=== PATIENT | female | born 1955 | race Caucasian/White ===

== ENCOUNTER 2021-10-06 06:12 | Outpatient (CLI) | payer BC, SELFPAY ==
--- NOTE | 2021-10-06 | USCV_ITS ---
Rita Souza Age: 66 Gender: F : 1955 Exam Date: 10/06/2021 06:51 Ordering Phys: Ginny Samuels Technologist: Ofe Downs [place] [facility] [place]: Irregular heart rate BP: 101 / 70 HR: 58 Rhythm: Sinus Technical Quality: Adequate MEASUREMENTS (Male / Female) Normal Values 2D ECHO LV Diastolic Diameter PLAX 3.4 cm 4.2 - 5.9 / 3.9 - 5.3 cm LV Systolic Diameter PLAX 2.4 cm LV Chamber Size 3.8 cm IVS Diastolic Thickness 1.1 cm 0.6 - 1.0 / 0.6 - 0.9 cm IVS Systolic Thickness 1.1 cm LVPW Diastolic Thickness 1.1 cm 0.6 - 1.0 / 0.6 - 0.9 cm LVPW Systolic Thickness 1.1 cm RV Chamber Size 2.9 cm LVOT Diameter 2.0 cm LV Ejection Fraction 2D Teich 60.5 % LV Ejection Fraction MOD 2C 68.2 % LV Ejection Fraction 2C AL 70.5 % LA Diameter 4.0 cm LA Width 3.4 cm LA Height 4.3 cm RA Width 3.2 cm RA Height 3.7 cm Aorta at Sinotubular Diameter 2.5 cm IVC Diameter 1.9 cm M-MODE Aortic Annulus Diameter 2.5 cm LA Ao Ratio MM 1.7 MV E Point Septal Separation 0.5 cm DOPPLER AV Peak Velocity 145.0 cm/s LVOT Peak Velocity 120.0 cm/s AV Area Cont Eq vti 2.2 cm squared AV Area Cont Eq pk 2.7 cm squared MV Area PHT 5.1 cm squared Mitral E to A Ratio 1.3 MV E' Velocity 45.5 cm/s Mitral E to MV E' Ratio 7.2 Mitral E to LV E' Lateral Ratio 7.8 Mitral E to LV E' Septal Ratio 6.7 TR Peak Velocity 216.1 cm/s TR Peak Gradient 18.7 mmHg TR Mean Velocity 167.6 cm/s TR Mean Gradient 12.7 mmHg TR Velocity Time Integral 67.0 cm TV Peak E Velocity 75.0 cm/s Right Atrial Pressure 3.0 mmHg Pulmonary Artery Systolic Pressu 21.7 mmHg PV Peak Velocity 63.0 cm/s RV Acceleration Time 0.2 s RV Ejection Time 0.4 s RV AcT/ET 0.6 FINDINGS Left Ventricle Normal left ventricular size and systolic function, EF 66 %. No regional wall motion abnormalities. Right Ventricle The right ventricle is normal in size and function. Right Atrium The right atrium is normal in size. Left Atrium Mildly increased left atrial size. Mitral Valve Mild mitral valve regurgitation. Aortic Valve No gross abnormalities noted Tricuspid Valve Mildtricuspid valve regurgitation. Pulmonic Valve No gross abnormalities noted Pericardium Normal pericardium without effusion. Aorta Normal ascending aorta dimension. IVC Normal IVC dimension with <50% respiratory change of the inferior vena cava. CONCLUSIONS Normal left ventricular size and systolic function, EF 66 %. No regional wall motion abnormalities. Mildly increased left atrial size. Mild mitral and tricuspid regurgitation. There is no pericardial effusion. There are no intracardiac masses. Estimated pulmonary artery peak systolic pressure 22 mmHg No similar previous studies are available for comparison Dr Babar Tarango MD FACC (Electronically Signed) Final Date: 07 October 2021 05:45 S
== END 2021-10-06 06:13 | disposition home or self-care (01) ==
LOC: RAD 06:13
PROVIDERS: Visit Provider Nurse Practitioner Family
DX: I49.9 Cardiac arrhythmia, unspecified (principal); I07.1 Rheumatic tricuspid insufficiency
CPT/HCPCS: 93306

== ENCOUNTER 2023-03-19 08:32 | Outpatient (CLI) | payer MEDICARE, SELFPAY ==
--- NOTE | 2023-03-19 08:36 | US_ITS ---
WS: [id number] RIGHT UPPER QUADRANT ULTRASOUND HISTORY: NAUSEA VOMITING COMPARISON: 03/22/2015 Liver: 12.8 cm in length. Normal size liver. Mild coarse echotexture throughout the liver. No mass or bile duct dilatation. Portal Vein: Normal hepatopetal flow with monophasic waveform. Gallbladder: Normally distended gallbladder with no stones or wall thickening. CBD: 0.3 cm Pancreas: Normal size and echogenicity. Right kidney: 9.0 cm in length. Normal size and echogenicity. No hydronephrosis or mass. Aorta and IVC: Unremarkable abdominal aorta and IVC. No ascites. IMPRESSION: 1. Normal gallbladder. 2. Very mild changes of hepatocellular disease, probably hepatic steatosis.
== END 2023-03-19 08:33 | disposition home or self-care (01) ==
LOC: RAD 08:32
PROVIDERS: Visit Provider Internal Medicine
DX: R11.2 Nausea with vomiting, unspecified (principal); Z01.89 Encounter for other specified special examinations
CPT/HCPCS: 76705

== ENCOUNTER 2023-10-15 06:54 | Outpatient (CLI) | payer MEDICARE, SELFPAY ==
--- NOTE | 2023-10-15 07:14 | CT_ITS ---
WS: [id number] CT ABDOMEN AND PELVIS WITH CONTRAST HISTORY: ABDOMINAL PAIN RIGHT UPPER QUADRANT, PAIN LEFT LOWER quadrant TECHNIQUE: Imaging performed of the abdomen and pelvis with IV contrast. Single phase imaging of the abdomen. Coronal and sagittal reformats are submitted. All CT scans at [facility] use at [address] one of these dose optimization techniques: automated exposure control; mA and/or kV adjustment per patient size (includes targeted exams where dose is matched to clinical indication); or iterative re construction. IV CONTRAST: Omnipaque 350; 100 mL IV. Oral contrast: Yes. DLP: 292.93 mGy.cm COMPARISON: 09/03/2011 Lower thorax: Lung bases are clear. Heart is normal size. No hiatal hernia. Liver/biliary system: Normal size with no intrahepatic dilatation. Gallbladder: Normal. No gallstones or wall thickening. No pericholecystic fluid. Pancreas: Normal common bile duct at the pancreatic head. No pancreatic duct dilatation. There is a 2 to 3 mm area of decreased attenuation in the pancreatic body which is probably normal lobulation of the pancreatic body and may be adjacent fat. No mass. Spleen: Normal size spleen. No mass or infarct. Adrenal glands: Normal. Right kidney: Normal. Left kidney: Normal. Aorta: Mild atherosclerosis with no aneurysm. Mild atherosclerotic plaque origin of the celiac axis. Celiac axis is small caliber. The LEFT hepatic artery arise separately from the aorta. Normal SMA. Lymphadenopathy: None. Free fluid: None. GI tract: Normally distended stomach. No small bowel obstruction. No wall thickening. No appendicitis . Minimal diverticular disease without acute diverticulitis. Abdominal wall: Fat containing umbilical hernia. Pelvis: Uterus is present and very elongated measuring approximately 10 cm in length. There is increa sed fluid in the cervical canal which is probably a nabothian cyst. This was also present on the prio r study. Bones: Unremarkable. CT/CT abdomen pelvis w con* [id number] IMPRESSION: 1. No acute abdominal or pelvic abnormalities. 2. No renal obstruction. 3. Negative gallbladder. 4. Normal variant celiac axis. 5. No GI tract obstruction. 6. Thin elongated uterus measures up to 10 cm in length. There is also a nabot hian cyst present. 7. No ascites or adenopathy.
[2023-10-15] MEDS: iohexol 350 mg/mL 500 mL Btl (per mL) PO (08:39)
[2023-10-15 09:50] LABS: Blood Urea Nitrogen 13 mg/dL (8-23); Glomerular Filtration Rate 83.7 mL/min (90-130)
[2023-10-15] MEDS: iohexol 350 mg/mL 500 mL Btl (per mL) IV (09:58)
== END 2023-10-15 06:55 | disposition home or self-care (01) ==
LOC: RAD 06:54
PROVIDERS: Visit Provider Internal Medicine
DX: R10.11 Right upper quadrant pain (principal); R10.32 Left lower quadrant pain; R10.31 Right lower quadrant pain; K42.9 Umbilical hernia without obstruction or gangrene
CPT/HCPCS: 74177; 82565; 84520; Q9967

== ENCOUNTER 2023-12-27 12:49 | Outpatient (CLI) | payer MEDICARE, SELFPAY ==
--- NOTE | 2023-12-27 12:52 | XR_ITS ---
WS: [id number] DEXA (DUAL ENERGY X-RAY ABSORPTIOMETRY) Bone mineral density was performed using a Njini machine. HISTORY: osteoporosis COMPARISON: None available. Lumbar spine BMD (L1-L4): 0.931 g/cm2 T score: -2.1 Z score: -0.4 Total hip BMD: Left: 0.772 g/cm2. T score: -1.9 Z score: -0.6 Right: 0.781 g/cm2. T score: -1.8 Z score: -0.5 10 year probability of a major osteoporotic fracture is 15.7%. XR/XR DEXA axial skeleton* [id number] IMPRESSION: OSTEOPENIA based upon the WHO classification for females.
== END 2023-12-27 12:50 | disposition home or self-care (01) ==
LOC: RAD 12:49
PROVIDERS: PCP Internal Medicine; Visit Provider Internal Medicine
DX: M81.0 Age-related osteoporosis without current pathological fracture (principal); M85.80 Other specified disorders of bone density and structure, unspecified site
CPT/HCPCS: 77080

== ENCOUNTER 2025-02-01 10:51 | Outpatient (CLI) | payer MEDICARE, SELFPAY ==
--- NOTE | 2025-02-01 10:56 | XR_ITS ---
WS: [id number] XR hip RT 2-3V wo/w pel* [id number] REASON FOR EXAM: PAIN IN RIGHT HIP FINDINGS: No fracture or focal bone lesion. Joint space is intact and relatively well preserved. Minimal subchondral sclerosis and osteophytosis of the acetabulum. Minimal osteophytosis of the femoral head. XR/XR hip RT 2-3V wo/w pel* [id number] IMPRESSION: Minimal osteoarthritis of the right hip.
== END 2025-02-01 10:52 | disposition home or self-care (01) ==
LOC: RAD 10:53
PROVIDERS: PCP Internal Medicine; Visit Provider Internal Medicine
DX: M16.11 Unilateral primary osteoarthritis, right hip (principal)
CPT/HCPCS: 73502